=== PATIENT | male | born 1960 | race African-American/Black ===

== ENCOUNTER 2016-11-21 16:27 | Emergency (ER) | payer SELFPAY ==
[~2016-11-21] VITALS: Ht 177.8 cm; Wt 122.5 kg
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
--- NOTE | 2016-11-21 16:36 | NUR ---
DR VALLES AT BEDSIDE FOR EVAL.
--- NOTE | 2016-11-21 16:57 | NUR ---
PT TO RADIOLOGY FOR C SPINE CT AND THORACIC AND LUMBAR XRAY VIA [facility].
--- NOTE | 2016-11-21 18:05 | NUR ---
PT TO RADIOLOGY FOR THORACIC SPINE CT SCAN VIA WHEELCHAIR.
[2016-11-21 19:27] VITALS: BP 142/84
--- NOTE | 2016-11-21 19:27 | NUR ---
Patient discharged to home in stable condition. Written and verbal after care instructions given. Patient verbalizes understanding of instruction.
== END 2016-11-21 19:28 | disposition home or self-care (01) ==
LOC: ER 16:30
DX: M54.2 Cervicalgia (principal); M54.6 Pain in thoracic spine; F17.200 Nicotine dependence, unspecified, uncomplicated; V49.40XA Driver injured in collision with unspecified motor vehicles in traffic accident, initial encounter; Y93.89 Activity, other specified; Y92.89 Other specified places as the place of occurrence of the external cause; Y99.9 Unspecified external cause status
CPT/HCPCS: 72074; 72100; 72125; 72128; 99284; A4606; Z7610